=== PATIENT | male | born 1930 | race Caucasian/White ===

== ENCOUNTER 2018-07-26 08:59 | Outpatient (CLI) | payer MEDICARE, OTHER ==
[2018-07-26] VITALS (9 sets, daily range): BP systolic 135–166; BP diastolic 62–80
[~2018-07-26] VITALS: Ht 177.8 cm; Wt 75.0 kg
[2018-07-26] MEDS ORDERED: normal saline 500ml IV soln 500 ML IV ONE (09:55)
[2018-07-26] MEDS ORDERED: regadenoson 0.4mg/5ml syringe IV ONE ×2 (09:55→11:05)
[2018-07-26] MEDS ORDERED: nitroGLYCERIN 0.4mg SUBLingual tab SL PRN (10:00)
[2018-07-26] MEDS ORDERED: atropine 0.1mg/ml 10ml syringe IV PRN (10:00)
[2018-07-26] MEDS ORDERED: aminophylline 250mg/10ml inj. IV PRN (10:00)
[2018-07-26] MEDS ORDERED: metoprolol tartrate 1mg/ml inj IV PRN (10:00)
[2018-07-26] MEDS ORDERED: aminophylline inj. 10 ML IV ONE (11:05)
== END 2018-07-26 23:59 | disposition home or self-care (01) ==
LOC: RAD 08:59
PROVIDERS: ATTEND Internal Medicine Cardiovascular Disease
DX: R06.02 Shortness of breath (principal); R53.83 Other fatigue; I10 Essential (primary) hypertension
CPT/HCPCS: 78452; 93017; 93306; A9500; J0280; J7030